=== PATIENT | male | born 1995 | race Caucasian/White ===

== ENCOUNTER 2022-12-20 16:45 | Emergency (ER) | payer SELFPAY ==
[2022-12-20 16:50] VITALS: BP 130/55
[2022-12-20] MEDS ORDERED: Tetanus/Diphtheria/Pertussis (Acell) ADULT Vaccine 0.5 ML IM ONE (17:15)
[2022-12-20] MEDS ORDERED: HYDROcodone/ACETAMINOPHEN 5 MG/325 MG TABLET PO ONE (17:15)
[2022-12-20] MEDS ORDERED: CLINDAMYCIN 900 MG/50 ML IVPB 50 ML IV ONE ×2 (17:15)
[2022-12-20] MEDS ORDERED: CLIN-144 PO (17:23)
[2022-12-20] MEDS ORDERED: IBUP-1773 PO (17:23)
--- NOTE | 2022-12-20 17:24 | ED Upper Extremity ---
General Chief Complaint: Upper Extremity Stated Complaint: R HAND PROBLEMS Nursing Triage Note: Patient reports he had a small blister on his right hand 5 days ago and that he now has an open wound and the infection has spread throughout his hand and to his wrist. He states he went to the walk-in clinic on Tuesday and started an antibiotic, but the infection has continued to worsen. Source: patient Exam Limitations: no limitations History of Present Illness Date Seen by Provider: Dec 20, 2022 Time Seen by Provider: 16:48 Initial Comments 27-year-old [id number] male with no pertinent past medical history coming in due to concerns for an infection on his right hand. He noticed what he thought was a pimple on his right knuckle about 5 days ago. He went to the urgent care on Tuesday, they started him on Bactrim. As continued to worsen and swelling is gotten worse since then. Denies any fever, but does have a lot of pain. Has not taken anything for the pain as of yet. Is otherwise denying any other acute complaints. He believes his last tetanus shot was more than 10 years ago. Allergies and Home Medications Allergies Coded Allergies: No Known Drug Allergies (Unverified , 12/20/22) Patient Home Medication List Home Medication List Reviewed: Yes Clindamycin HCl (Clindamycin HCl) 300 Mg Capsule, 300 MG PO TID Prescribed by: ETHAN LILLY on 12/20/22 172 Ibuprofen (Ibuprofen) 600 Mg Tablet, 600 MG PO Q6H PRN for PAIN-MILD Prescribed by: ETHAN LILLY on 12/20/22 1723 Review of Systems Constitutional: No fever EENTM: no symptoms reported Respiratory: no symptoms reported Cardiovascular: no symptoms reported Gastrointestinal: no symptoms reported Genitourinary: no symptoms reported Musculoskeletal: see HPI Skin: see HPI Psychiatric/Neurological: No Symptoms Reported Past Rowwtbk-Kfqwbm-Bvxexz Hx Patient Social History Tobacco Use?: No Substance use?: No Alcohol Use?: No Pt feels they are or have been: No Past Medical History Surgeries: No Physical Exam Vital Signs Vital Signs - First Documented 12/20/22 16:50 Temp 37.1 Pulse 81 Resp 16 B/P (MAP) 130/55 (80) Pulse Ox 98 O2 Delivery Room Air Capillary Refill : Less Than 3 Seconds Height, Weight, BMI Height: '" Weight: lbs. oz. kg; BMI Method: General Appearance: WD/WN, no apparent distress Neck: non-tender, full range of motion, supple, normal inspection Cardiovascular: regular rate, rhythm, no edema, no murmur Respiratory: chest non-tender, lungs clear, normal breath sounds, no respiratory distress, no accessory muscle use Hand: Right (Right hand with an open wound and fluctuance between the heads of the fourth and fifth metacarpals with overlying cellulitis) Neurologic/Tendon: normal sensation, normal motor functions, normal tendon functions Neurologic/Psychiatric: no motor/sensory deficits, alert, normal mood/affect Skin: warm/dry, rash Procedures/Interventions I&D : Site: right hand Blade Size: 11 Progress 4 cc of 1% lidocaine were infiltrated into the area with a 27-gauge needle. Afterwards a single stab incision with an 11 blade followed by a moderate amount of purulent drainage. Patient tolerated the procedure well. Progress/Results/Core Measures Results/Orders My Orders Orders - ETHAN LILLY MD Dipht/Pertuss(Acell)/Tet Adult (Dipht/Pe (12/20/22 17:15) Hydrocodone/Apap 5/325 Tablet (Hydrocod (12/20/22 17:15) Clindamycin 900 Mg/50 Ml Ivpb (Clindamyc (12/20/22 17:15) Clindamycin 900 Mg/50 Ml Ivpb (Clindamyc (12/20/22 17:15) Vital Signs/I&O 12/20/22 16:50 Temp 37.1 Pulse 81 Resp 16 B/P (MAP) 130/55 (80) Pulse Ox 98 O2 Delivery Room Air Blood Pressure Mean: 80 Progress Progress Note : Progress Note 27-year-old male with above history coming in due to hand infection. ABCs were intact and vitals were stable on presentation. Physical exam with obvious fluctuant abscess to the right hand with overlying cellulitis. I was able to visualize it with ultrasound and avoid all important structures. A single stab incision with an 11 blade was made with a moderate amount of purulent drainage. Patient tolerated this well. We gave him 1 dose of IV clindamycin here followed by prescription of clindamycin. We updated his tetanus as well. I discussed the antibiotic that he was on likely was not working because of the abscess. I recommended giving this antibiotic a couple days to work, if its not improving at that time that he likely needs continued IV antibiotics and evaluation for admission. I believe he is otherwise stable for discharge with outpatient follo w-up. He was sent home with strict return precautions. Departure Impression Primary Impression: Hand abscess Disposition: 01 HOME, SELF-CARE Condition: Stable Departure-Patient Inst. Patient Instructions: Abscess Incision and Drainage (DC) Add. Discharge Instructions: You had an infected abscess that was likely a staph infection. We will change y our antibiotics from the current one to clindamycin. You will take this 3 times a day for the next 10 days. The first dose should be taken tonight before bed. If the infection is not showing any improvement in the next couple of days, we would want this to be reevaluated by doctor. Pain medicine was also sent to your pharmacy to help. We recommend doing hot water soaks and continuing to gently squeeze the area to try to encourage more drainage over the next couple of days Scripts Ibuprofen (Ibuprofen) 600 Mg Tablet 600 MG PO Q6H PRN for PAIN-MILD for 5 Days, #20 TAB Prov: ETHAN LILLY MD 12/20/22 Clindamycin HCl (Clindamycin HCl) 300 Mg Capsule 300 MG PO TID for 10 Days, #30 CAP Prov: ETHAN LILLY MD 12/20/22 ETHAN LILLY MD Dec 20, 2022 17:24
== END 2022-12-20 17:56 | disposition home or self-care (01) ==
LOC: ER FS 16:47
DX: L02.511 Cutaneous abscess of right hand (principal); Z23 Encounter for immunization
CPT/HCPCS: 10060; 90715

== ENCOUNTER 2022-12-22 15:41 | Emergency (ER) | payer SELFPAY ==
[~2022-12-22] VITALS: Ht 177 cm; Wt 68.0 kg
[~2022-12-22 15:41] MED LIST: CLIN-144 PO; IBUP-1773 PO
--- NOTE | 2022-12-22 15:53 | ED Integumentary General ---
General Chief Complaint: Skin/Wound Problems Stated Complaint: R HAND PROBLEMS,FEVER Source: patient Exam Limitations: no limitations History of Present Illness Date Seen by Provider: Dec 22, 2022 Time Seen by Provider: 15:42 Initial Comments 27-year-old male presents to the emergency department today for right hand wound, infection. He was seen here Tuesday for an abscess to his right dorsal hand between his little and ring finger. He had incision and drainage. He had previously been on Bactrim and switch to clindamycin given a dose of IV and then discharged with oral antibiotics. He has been compliant with medications per his report. He states around noon he had a fever 101.6. He also has some body aches, bilateral arm and leg pain as well as a sore throat. No other sick contacts. He feels like the wound on his hand is improved so but he does have some streaking up his arm. All other systems reviewed and negative except documented per HPI. Voice recognition software was used to help create this chart Allergies and Home Medications Allergies Coded Allergies: No Known Drug Allergies (Unverified , 12/20/22) Patient Home Medication List Home Medication List Reviewed: Yes Clindamycin HCl (Clindamycin HCl) 300 Mg Capsule, 300 MG PO TID Prescribed by: ETHAN LILLY on 12/20/22 1723 Ibuprofen (Ibuprofen) 600 Mg Tablet, 600 MG PO Q6H PRN for PAIN-MILD Prescribed by: ETHAN LILLY on 12/20/22 1723 Review of Systems Review of Systems Constitutional: see HPI Past Kmnicwm-Wctlph-Ujfvsm Hx Patient Social History Tobacco Use?: No Use of E-Cig and/or Vaping dev: No Substance use?: No Alcohol Use?: No Pt feels they are or have been: No Past Medical History Surgeries: No Physical Exam Vital Signs Vital Signs - First Documented 12/22/22 15:45 Temp 37.0 Pulse 84 Resp 16 B/P (MAP) 127/74 (91) Pulse Ox 98 O2 Delivery Room Air Capillary Refill : General Appearance: WD/WN, no apparent distress HEENT: PERRL/EOMI, normal ENT inspection, pharynx normal Neck: full range of motion Cardiovascular: regular rate, rhythm, no murmur Respiratory: chest non-tender, lungs clear, normal breath sounds, no respiratory distress, no accessory muscle use Gastrointestinal: normal bowel sounds, non tender, soft, no organomegaly Back: normal inspection Extremities: other (Swelling diffusely about the right hand. There is an open wound with small purulent drainage between his little and ring finger on the dorsal aspect of the hand. There are some streaking up to about the mid forearm.) Neurologic/Psychiatric: alert, oriented x 3 Progress/Results/Core Measures Results/Orders Lab Results Laboratory Tests Test 12/22/22 15:55 12/22/22 16:00 Range/Units SARS-CoV-2 RNA (RT-PCR) Negative Not Detecte White Blood Count 5.0 4.3-11.0 10^3/uL Red Blood Count 4.79 4.30-5.52 10^6/uL Hemoglobin 15.1 13.3-17.7 g/dL Hematocrit 43 40-54 % Mean Corpuscular Volume 89 80-99 fL Mean Corpuscular Hemoglobin 32 25-34 pg Mean Corpuscular Hemoglobin Concent 35 32-36 g/dL Red Cell Distribution Width 12.6 10.0-14.5 % Platelet Count 173 130-400 10^3/uL Mean Platelet Volume 8.8 L 9.0-12.2 fL Immature Granulocyte % (Auto) 0 % Neutrophils (%) (Auto) 70 42-75 % Lymphocytes (%) (Auto) 17 12-44 % Monocytes (%) (Auto) 9 0-12 % Eosinophils (%) (Auto) 2 0-10 % Basophils (%) (Auto) 1 0-10 % Neutrophils # (Auto) 3.5 1.8-7.8 10^3/uL Lymphocytes # (Auto) 0.9 L 1.0-4.0 10^3/uL Monocytes # (Auto) 0.5 0.0-1.0 10^3/uL Eosinophils # (Auto) 0.1 0.0-0.3 10^3/uL Basophils # (Auto) 0.1 0.0-0.1 10^3/uL Immature Granulocyte # (Auto) 0.0 0.0-0.1 10^3/uL Lactic Acid Level 0.72 0.50-2.00 MMOL/L My Orders Orders - DANIEL SAUCEDA DO Cbc With Automated Diff (12/22/22 15:50) Basic Metabolic Panel (12/22/22 15:50) Blood Culture (12/22/22 15:50) Lactic Acid Analyzer (12/22/22 15:50) Ed Iv/Invasive Line Start (12/22/22 15:50) Covid 19 Inhouse Test (12/22/22 15:51) Vital Signs/I&O 12/22/22 15:45 Temp 37.0 Pulse 84 Resp 16 B/P (MAP) 127/74 (91) Pulse Ox 98 O2 Delivery Room Air Departure Communication (Admissions) Patient is hemodynamically stable with normal vital signs. Hand overall looks dramatically better from when described in the note and nurses that had seen at initially at his first visit are actually here again today and comments on how much better it looks. He has no streaking he is afebrile. White blood cell count is normal. I did draw blood culture out of caution, advised him that this will take 24 to 48 hours to result and he would be notified if it became positive. My thought is currently that he has a viral URI in addition to his current cellulitis. Given the dramatic improvement in the look of his cellulitis as well as his normal white blood cell count I think he is safe to continue clindamycin at home at this time. Advised increasing his fluids using ibuprofen and Tylenol for body aches and chills. His COVID test is negative. He has a mild sore throat however his oropharynx is normal with nonerythematous without. Will be discharged home in stable condition with supportive care. Impression Primary Impression: Cellulitis Qualified Codes: L03.113 - Cellulitis of right upper limb Additional Impression: Body aches Disposition: 01 HOME, SELF-CARE Condition: Stable Departure-Patient Inst. Referrals: NO,LOCAL PHYSICIAN (PCP/Family) Primary Care Physician Patient Instructions: Cellulitis (Skin Infection), Adult (DC) Add. Discharge Instructions: Continue your antibiotics as prescribed until they are gone. Increase your fluids at home, rest. Use ibuprofen and Tylenol as needed for fevers or pain. Emergency department for any worsening drainage, swelling of your hand or streaking up your arm. I recommend you follow-up with your primary doctor in the next 2 days for recheck. All discharge instructions reviewed with patient and/or family. Voiced understanding. DANIEL SAUCEDA DO Dec 22, 2022 15:53
[2022-12-22 16:06] LABS: BASOPHILS # (AUTO) 0.1 10^3/uL (0.0-0.1); BASOPHILS % (AUTO) 1 % (0-10); EOSINOPHILS # (AUTO) 0.1 10^3/uL (0.0-0.3); EOSINOPHILS % (AUTO) 2 % (0-10); HEMATOCRIT 43 % (40-54); HEMOGLOBIN 15.1 g/dL (13.3-17.7); LYMPHOCYTES # (AUTO) 0.9 10^3/uL (1.0-4.0); LYMPHOCYTES % (AUTO) 17 % (12-44); MEAN CORPUSCULAR HEMOGLOBIN 32 pg (25-34); MEAN CORPUSCULAR HGB CONC 35 g/dL (32-36); MEAN CORPUSCULAR VOLUME 89 fL (80-99); MEAN PLATELET VOLUME 8.8 fL (9.0-12.2); MONOCYTES # (AUTO) 0.5 10^3/uL (0.0-1.0); MONOCYTES % (AUTO) 9 % (0-12); NEUTROPHILS # (AUTO) 3.5 10^3/uL (1.8-7.8); NEUTROPHILS % (AUTO) 70 % (42-75); PLATELET COUNT 173 10^3/uL (130-400)
[2022-12-22 16:32] VITALS: BP 127/74
[2022-12-22 16:36] LABS: CALCIUM 9.6 MG/DL (8.5-10.1); CREATININE SERUM 0.8 MG/DL (0.60-1.30)
== END 2022-12-22 16:32 | disposition home or self-care (01) ==
LOC: EDUNIT# 15:41 → ER FS 15:43
DX: L03.113 Cellulitis of right upper limb (principal); M79.10 Myalgia, unspecified site; Z20.822 Contact with and (suspected) exposure to COVID-19; Z28.310 Unvaccinated for COVID-19
CPT/HCPCS: 36415; 80048; 83605; 85025; 87040; 87636